=== PATIENT | female | born 1970 | race Caucasian/White ===

== ENCOUNTER 2021-11-17 14:50 | Emergency (ER) | payer BC, SELFPAY ==
--- NOTE | ~2021-11-17 | CT_ITS ---
EXAMINATION: CT abdomen pelvis wo con DATE: 11/17/2021 15:31 INDICATION: Kidney stones. Right flank pain. TECHNIQUE: Computed tomography (CT) of the abdomen and pelvis was performed without intravenous contr ast. Automated exposure control and iterative reconstruction technique were employed. The dose-length product was 181.19 mGy-cm. COMPARISON: CT abdomen and pelvis 12/06/2016 FINDINGS: The visualized portions of the lung bases demonstrate minimal atelectasis. No pleural effus ion. The heart size is normal. No pericardial effusion. The liver and spleen are normal. There are ch anges of cholecystectomy. The pancreas and adrenal glands are normal. There is mild right hydronephro sis and hydroureter. There is a 2 mm stone at right ureterovesicular junction. Left kidney is normal. There are no dilated loops of bowel. The appendix is normal. There are no pathologically enlarged ly mph nodes. There is no free intraperitoneal fluid. There is mild lumbar spondylosis. Lumbar levoscoli osis is noted. IMPRESSION: 1. 2 mm stone at right ureterovesicular junction with mild right hydronephrosis and hydroureter. Reviewed, dictated and finalized at location D. EY RESEARCH MANAGER IMPRESSION: 1. 2 mm stone at right ureterovesicular junction with mild right hydronephrosi s and hydroureter.
--- NOTE | ~2021-11-17 | XR_ITS ---
EXAMINATION: XR abdomen/kub 1V INDICATION: Right-sided abdominal pain TECHNIQUE: Supine views of the abdomen were obtained on 2 radiographs. COMPARISON: CT from today FINDINGS: There is subtle 2 mm calcification of the right pelvis in the expected location of the righ t ureterovesicular junction corresponding to the stone identified on earlier CT examination. Pelvic p hleboliths are noted. The bowel gas pattern is normal. Cholecystectomy clips are noted. The visualize d lung bases are clear. IMPRESSION: 1. Subtle 2 mm stone at the expected location of the right ureterovesicular junction. Reviewed, dictated and finalized at location F. INE WORKER IMPRESSION: 1. Subtle 2 mm stone at the expected location of the right ureterovesicular hieu ction.
[2021-11-17 14:57] VITALS: BP 140/86; PULSE 58; RESP 18; TEMP 36.5; O2SAT 99
[2021-11-17 15:07] VITALS: BP 140/86; O2SAT 100
[2021-11-17 15:15] VITALS: BP 149/100; O2SAT 100
[2021-11-17 15:20] LABS: Basophils Percent Auto 0.2 % (0.2-1.2); Eosinophils Absolute Auto 0.1 K/mm3 (0-0.3); Eosinophils Percent Auto 1.1 % (0-4.4); Hematocrit 40.7 % (37.0-47.0); Hemoglobin 13.9 g/dL (12.0-15.0); Immature Granulocyte Absolute 0.01 K/mm3 (0.00-0.031); Immature Granulocyte Percent A 0.1 % (0-0.5); Lymphocytes Absolute Auto 2.32 K/mm3 (0.9-3.2); Lymphocytes Percent Auto 28.4 % (18.3-44.2); Mean Corpuscular HGB Conc 34.2 g/dl (32-36); Mean Corpuscular Hemoglobin 30.8 pg (26-34); Mean Corpuscular Volume 90.2 fl (80-100); Mean Platelet Volume 9.3 fl (7.4-10.4); Monocytes Absolute Auto 0.6 K/mm3 (0.1-0.6); Monocytes Percent Auto 6.9 % (2.6-8.5); Neutrophils Absolute Auto 5.2 K/mm3 (1.3-6.7); Neutrophils Percent Auto 63.3 % (45.5-73.1); Platelet Count Result 266 k/mm3 (150-375); Red Blood Count 4.51 M/mm3 (4.2-5.4); Red Cell Distribution Width 12.7 % (11.5-14.5); White Blood Count 8.2 K/mm3 (4.5-10.0)
[2021-11-17 15:25] LABS: Add Urine Microscopic? YES; Appearance Urine Clear (Clear); Bacteria Urine Trace /hpf; Bilirubin Urine Negative (Negative); Blood Urine Negative (Negative); Color Urine Straw (Yellow); Glucose Urine UA Negative (Negative); Ketones Urine 1+ mg/dL (Negative); Leukocyte Esterase Ur Negative LEU/UL (Negative); Mucus Urine Rare /lpf; Nitrate Urine Negative (Negative); Protein Urine Negative (Negative); Squamous Epithelial Cell Urine Few /hpf (Few); Urobilinogen Urine Negative mg/dL (<2.0); WBC Urine 0-3 /hpf
[2021-11-17 15:31] LABS: Alanine Aminotransferase 21 U/L (4-35); Albumin Level 4.4 g/dL (3.5-5.1); Alkaline Phosphatase 92 U/L (38-126); Anion Gap 13 mmol/L (8-16); Aspartate Amino Transferase 28 U/L (14-36); Bilirubin,Total 0.6 mg/dL (0.2-1.3); Blood Urea Nitrogen 26 mg/dL (7-17); Calcium 9.5 mg/dL (8.4-10.2); Carbon Dioxide 22 mmol/L (22-30); Chloride 98 mmol/L (98-107); Estimated CRCL calculation 61 ml/min; Estimated Glomerular Filt Rate > 60; Glucose 114 mg/dL (65-110); Potassium 3.6 mmol/L (3.4-5.0); Sodium 133 mmol/L (137-145)
[2021-11-17] MEDS: SODIUM CHLORIDE 0.9% IV 1,000 ML 150 ML IV CONT (16:09)
[2021-11-17] MEDS: ONDANSETRON INJ 4 MG/2 ML VIAL IV PUSH (16:11)
[2021-11-17] MEDS: MORPHINE SULFATE (*CRX) 4 MG/ML INJ IV PUSH (16:12)
[2021-11-17 16:30] VITALS: BP 139/93; O2SAT 97
[2021-11-17 16:45] VITALS: BP 126/79; O2SAT 96
[2021-11-17 17:00] VITALS: BP 129/82; O2SAT 97
--- NOTE | 2021-11-17 17:03 | ED.ABDPAIN ---
HPI - Abdominal Pain General Chief Complaint: Urogenital-Female Stated Complaint: R FLANK PAIN Time Seen by Provider: 11/17/21 14:59 Source: patient Mode of arrival: ambulatory Limitations: no limitations History of Present Illness HPI narrative: 51-year-old with no major medical problems here with complaints of lower abdominal pain started early this morning. Patient states she went to her primary doctor's office to give a urine results on her way back home she started having more pain, felt slightly nauseous but no vomiting she also states her body tingling by the time she came to the ER tingling sensation has much resolved Related Data Home Medications Medication Instructions Recorded Confirmed venlafaxine 37.5 mg PO DAILY 11/17/21 Allergies Allergy/AdvReac Type Severity Reaction Status Date / Time bacitracin Allergy Rash Verified 11/17/21 16:13 [From Neosporin ([id number])] neomycin Allergy Rash Verified 11/17/21 16:13 [From Neosporin ([id number])] polymyxin B Allergy Rash Verified 11/17/21 16:13 [From Neosporin ([id number])] environmental allergens Allergy Mild Unknown Uncoded 11/17/21 16:13 Review of Systems Review of Systems: All systems reviewed & are unremarkable except as noted in HPI and below Constitutional: Constitutional: Reports no additional constitutional complaints Eyes: Eyes: Reports no additional eye complaints ENT: Reports system reviewed and no additional complaints, except as documented Cardiovascular: Cardiovascular: Reports no additional cardiovascular complaints Respiratory: Respiratory: Reports no additional respiratory complaints Gastrointestinal: Gastrointestinal: Reports as per HPI Genitourinary: Genitourinary: Reports no additional female genitourinary complaints Musculoskeletal: Musculoskeletal: Reports no additional musculoskeletal complaints Integumentary/Breasts: Skin/Breast: Reports system reviewed and no additional complaints, except as docu Neurologic: Reports system reviewed and no additional complaints, except as documented Psychiatric: Psychiatric: Reports no additional psychiatric complaints Exam Narrative: GENERAL: Well-appearing, well-nourished, and in no acute distress. HEAD: Normocephalic, atraumatic. EYES: PERRLA and EOMI. NECK: Supple. CHEST: Clear to auscultation. No respiratory distress. HEART: Regular rate and rhythm. No murmur heard. Normal peripheral pulses. ABDOMEN: Soft, nontender, nondistended, normal active bowel sounds. EXTREMITIES: Normal range of motion. No edema. SKIN: Warm, dry, no rash. NEURO: No focal deficits. Alert and oriented x3. PSYCH: Normal mood and affect. Course Course Emergency Course: Patient feeling much better after IV morphine. Informed her about the lab work and CT findings. She does feel comfortable going home. Vital Signs Vital signs: Vital Signs Temperature 36.5 C 11/17/21 14:57 Pulse Rate 58 L 11/17/21 14:57 Respiratory Rate 18 11/17/21 14:57 Blood Pressure 140/86 11/17/21 14:57 Pulse Oximetry 99 11/17/21 14:57 Temperature 36.5 C 11/17/21 14:57 Pulse Rate 58 L 11/17/21 14:57 Respiratory Rate 18 11/17/21 14:57 Blood Pressure 129/82 11/17/21 17:00 Pulse Oximetry 97 11/17/21 17:00 MDM - Abdominal Pain Differential Diagnosis Differential diagnosis: Likely acute appendicitis and other (UTI, kidney stones) Medical Records Attestation: I reviewed the patient's medical records. Lab Data Attestation: I reviewed the patient's lab results. Result diagrams: 11/17/21 15:12 11/17/21 15:12 Labs: Lab Results 11/17/21 11/17/21 11/17/21 Range/Units 15:12 15:12 15:12 WBC 8.2 (4.5-10.0) K/mm3 RBC 4.51 (4.2-5.4) M/mm3 Hgb 13.9 (12.0-15.0) g/dL Hct 40.7 (37.0-47.0) % MCV 90.2 (80-100) fl MCH 30.8 (26-34) pg MCHC 34.2 (32-36) g/dl RDW 12.7 (11.5-14.5) % Plt Count
== END 2021-11-17 17:30 | disposition home or self-care (01) ==
PROVIDERS: Emergency Provider Family Medicine
DX: N13.2 Hydronephrosis with renal and ureteral calculous obstruction (principal)
CPT/HCPCS: 36415; 74018; 74176; 80053; 81001; 81025; 85025; 96361; 96374; 96375; 99284; J2270; J2405; J7030

== ENCOUNTER → 2022-02-18 16:11 | Outpatient (CLI) | payer BC, SELFPAY ==
--- NOTE | ~2022-02-18 | MM_ITS ---
EXAMINATION: MM screening [facility] BI w trena HISTORY: Screening mammogram TECHNIQUE: Craniocaudal and mediolateral oblique 3-D tomosynthesis images were obtained and synthetic 2-D images were generated. CAD analysis was submitted and interpreted. COMPARISON: 06/18/2011 [facility] Bilateral screening mammogram BREAST PARENCHYMAL COMPOSITION: There are scattered areas of fibroglandular density. FINDINGS: There is no evidence of suspicious mass, calcification, or architectural distortion to sugg est malignancy in either breast. There has been no suspicious interval change. IMPRESSION: 1. No mammographic evidence of malignancy. 2. Recommend routine screening mammography in one year. BI-RADS Category 1: Negative Reviewed, dictated and finalized at location A.
== END ==
PROVIDERS: PCP Internal Medicine; Visit Provider Obstetrics & Gynecology
DX: Z12.31 Encounter for screening mammogram for malignant neoplasm of breast (principal)
CPT/HCPCS: 77063; 77067

== ENCOUNTER → 2023-04-19 15:42 | Outpatient (CLI) | payer BC, SELFPAY ==
--- NOTE | ~2023-04-19 | MM_ITS ---
EXAMINATION: MM screening [facility] BI w trena HISTORY: Screening mammogram TECHNIQUE: Craniocaudal and mediolateral oblique 3-D tomosynthesis images were obtained and synthetic 2-D images were generated. CAD analysis was submitted and interpreted. COMPARISON: 02/18/2022 bilateral screening mammogram BREAST PARENCHYMAL COMPOSITION: FINDINGS: Small breast mass, possibly chronic, is suggested anteriorly in the inner aspect of the low er inner quadrant of the right breast. Approximately 8 mm apparently new mass is suggested in the lower outer left breast. Bilateral diagnostic mammography and breast ultrasound examination are recommended. IMPRESSION: 1. Possible bilateral breast masses 2. Bilateral diagnostic mammography and breast ultrasound examination are recommended BI-RADS Category 0: Incomplete: Needs additional imaging evaluation. Reviewed, dictated and finalized at location A. IMPRESSION: 1. Possible bilateral breast masses 2. Bilateral diagnostic mammography and breast ultrasound examination are recom mended BI-RADS Category 0: Incomplete: Needs additional imaging evaluation.
== END ==
PROVIDERS: PCP Internal Medicine; Visit Provider Obstetrics & Gynecology
DX: Z12.31 Encounter for screening mammogram for malignant neoplasm of breast (principal); R92.8 Other abnormal and inconclusive findings on diagnostic imaging of breast
CPT/HCPCS: 77063; 77067

== ENCOUNTER → 2023-05-17 07:45 | Outpatient (CLI) | payer OTHER, SELFPAY ==
--- NOTE | ~2023-05-17 | MMUS_ITS ---
EXAMINATION: MM diagnostic konrad BI w trena, US breast BI limited HISTORY: Possible bilateral breast masses reported on 04/19/2023 screening mammogram TECHNIQUE: Additional 3-D tomosynthesis images of both breasts were performed and synthetic 2-D image s were generated. Rolled medial and lateral craniocaudal views of both breasts. CAD analysis was subm itted and interpreted. High resolution right lower inner quadrant and left 2:00-4:00 breast ultrasoun d was performed. COMPARISON: 04/19/2023 bilateral screening mammogram FINDINGS: MAMMOGRAPHIC FINDINGS: Approximately 6 x 8.8 mm irregular mass is noted in the outer mid left breast posteriorly. Ultrasound correlation was obtained. No other suspicious mass or any architectural distortion, microcalcifications, skin thickening or ret raction of either breast is noted. ULTRASOUND: Right breast: 5:00 subareolar: 2.6 x 3 mm cyst Left breast: 3:00 3 cm from nipple: Probable 3 mm cyst 4:00 7 cm from nipple: Mildly irregular 5.6 x 5.8 x 9.5 mm hypoechoic mass; some of the margins are n ot completely circumscribed. Ultrasound-guided biopsy is recommended. IMPRESSION: 1. Mildly irregular hypoechoic solid 5.6 x 5.8 x 9.5 mm mass with incompletely circumscribed margins, left breast 4:00 7 cm from nipple 2. Ultrasound-guided biopsy of left breast 4:00 lesion is recommended BI-RADS category 4, suspicious findings. Dr. Roman telephoned the report and ultrasound guided biopsy recommendation of left breast 4:00 lesion on 05/09/2023 at 0925 hours to the referring doctor's voicemail at . Reviewed, dictated and finalized at location A. IMPRESSION: 1. Mildly irregular hypoechoic solid 5.6 x 5.8 x 9.5 mm mass with incompletely circumscribed margins, left breast 4:00 7 cm from nipple 2. Ultrasound-guided biopsy of left breast 4:00 lesion is recommended BI-RADS category 4, suspicious findings. Dr. Roman telephoned the report and ultrasound guided biopsy recommendation of l eft breast 4:00 lesion on 05/09/2023 at 0925 hours to the referring doctor's voi cemail at .
== END ==
PROVIDERS: PCP Obstetrics & Gynecology; Visit Provider Obstetrics & Gynecology
DX: R92.8 Other abnormal and inconclusive findings on diagnostic imaging of breast (principal)
CPT/HCPCS: 76642; 77062; 77066; G0279

== ENCOUNTER 2024-03-25 16:33 | Outpatient (CLI) | payer OTHER, SELFPAY ==
[2024-03-25 17:49] LABS: Basophils Absolute Auto 0.1 K/mm3 (0.0-0.1); Basophils Percent Auto 0.7 % (0.2-1.2); Eosinophils Absolute Auto 0.2 K/mm3 (0-0.3); Eosinophils Percent Auto 2.4 % (0-4.4); Hematocrit 45.1 % (37.0-47.0); Hemoglobin 14.5 g/dL (12.0-15.0); Immature Granulocyte Absolute 0.02 K/mm3 (0.00-0.031); Immature Granulocyte Percent A 0.3 % (0-0.5); Lymphocytes Absolute Auto 1.86 K/mm3 (0.9-3.2); Lymphocytes Percent Auto 24.3 % (18.3-44.2); Mean Corpuscular HGB Conc 32.2 g/dl (32-36); Mean Corpuscular Hemoglobin 29.9 pg (26-34); Mean Platelet Volume 9.8 fl (7.4-10.4); Monocytes Absolute Auto 0.5 K/mm3 (0.1-0.6); Monocytes Percent Auto 6.3 % (2.6-8.5); Neutrophils Absolute Auto 5.1 K/mm3 (1.3-6.7); Platelet Count Result 338 k/mm3 (150-375); Red Blood Count 4.85 M/mm3 (4.2-5.4); Red Cell Distribution Width 13.3 % (11.5-14.5); White Blood Count 7.6 K/mm3 (4.5-10.0)
[2024-03-25 18:00] LABS: Alanine Aminotransferase 27 U/L (6-35); Alkaline Phosphatase 101 U/L (38-126); Anion Gap 9 mmol/L (4-12); Aspartate Amino Transferase 27 U/L (14-36); Bilirubin,Total 0.8 mg/dL (0.2-1.3); Blood Urea Nitrogen 19 mg/dL (7-17); Calcium 9.6 mg/dL (8.4-10.2); Carbon Dioxide 25 mmol/L (22-30); Chloride 105 mmol/L (98-107); Estimated Glomerular Filt Rate 58; Glucose 100 mg/dL (65-110); Potassium 4.2 mmol/L (3.4-5.0); Sodium 139 mmol/L (137-145)
[2024-03-25 18:53] LABS: Free T4 Free Thyroxine 1.02 ng/mL (0.78-2.19); Vitamin D 25 Hydroxy 34.7 ng/mL
== END 2024-03-25 16:34 | disposition home or self-care (01) ==
PROVIDERS: PCP Internal Medicine; Visit Provider Internal Medicine
DX: R53.83 Other fatigue (principal); E55.9 Vitamin D deficiency, unspecified
CPT/HCPCS: 36415; 80053; 82306; 82607; 84439; 84443; 85025

== ENCOUNTER 2024-04-02 16:37 | Outpatient (CLI) | payer OTHER, SELFPAY ==
--- NOTE | ~2024-04-02 | MM_ITS ---
EXAMINATION: MM screening [facility] BI w jordin HISTORY: Screening mammogram TECHNIQUE: Craniocaudal and mediolateral oblique 3-D tomosynthesis images were obtained and synthetic 2-D images were generated. CAD analysis was submitted and interpreted. COMPARISON: 05/17/2023 diagnostic bilateral mammogram and limited bilateral breast ultrasound examinat ion 04/19/2023, 02/18/2022 lateral screening mammogram examinations BREAST PARENCHYMAL COMPOSITION: There are scattered areas of fibroglandular density. FINDINGS: At least several approximately 3.4, 4.4 and 8.3 mm masses are noted in the central and oute r left breast (craniocaudal Jordin image 20/76). Diagnostic left mammogram and left breast ultrasound e xamination are recommended. Possible approximately 4 mm mass in the lower anterior right breast (MLO, Jordin image 29/82; craniocau dunia, Jordin image 20/74). Diagnostic right mammogram and right breast ultrasound examination recommend ed IMPRESSION: 1. Possible bilateral breast masses 2. Diagnostic bilateral mammogram and bilateral breast ultrasound examination are recommended BI-RADS Category 0: Incomplete: Needs additional imaging evaluation. Reviewed, dictated and finalized at location A. IMPRESSION: 1. Possible bilateral breast masses 2. Diagnostic bilateral mammogram and bilateral breast ultrasound examination a re recommended BI-RADS Category 0: Incomplete: Needs additional imaging evaluation.
== END 2024-04-02 16:38 | disposition home or self-care (01) ==
PROVIDERS: PCP Internal Medicine; Visit Provider Obstetrics & Gynecology
DX: Z12.31 Encounter for screening mammogram for malignant neoplasm of breast (principal); R92.8 Other abnormal and inconclusive findings on diagnostic imaging of breast
CPT/HCPCS: 77063; 77067

== ENCOUNTER 2024-04-23 10:53 | Outpatient (CLI) | payer OTHER, SELFPAY ==
--- NOTE | ~2024-04-23 | MMUS_ITS ---
EXAMINATION: MM diagnostic konrad BI w trena, US breast BI limited HISTORY: Follow-up breast asymmetries TECHNIQUE: Additional 3-D tomosynthesis images of the breasts were performed and synthetic 2-D images were generated. CAD analysis was submitted and interpreted. High resolution limited bilateral breast ultrasound was performed. COMPARISON: Comparison to multiple prior studies sequentially, with oldest reviewed study dated 11/2021. BREAST PARENCHYMAL COMPOSITION: Not dense: There are scattered areas of fibroglandular density. FINDINGS: MAMMOGRAPHIC FINDINGS: Bilateral breast asymmetries are unchanged from previous examination. There are no suspicious areas o f architectural distortion or calcifications. ULTRASOUND: Limited right breast ultrasound: There are small cyst at 12:00, 3 cm from the nipple and 4:00, near t he nipple, largest measuring 5 mm. No suspicious masses to suggest malignancy. Limited left breast ultrasound: At 12:00, 1 cm from the nipple there is an antiparallel 3 mm hypoecho ic mass without posterior features or internal vascularity. At 3:00, 3 cm from the nipple there is a 4 mm cyst. IMPRESSION: 1. Antiparallel 3 mm mass of the left breast at 12:00, 1 cm from the nipple. Margins are is slightly irregular. 2. Ultrasound-guided aspiration of left breast mass recommended. If no fluid obtained, biopsy recomme nded. BI-RADS category 4, suspicious findings. Reviewed, dictated and finalized at location B. IMPRESSION: 1. Antiparallel 3 mm mass of the left breast at 12:00, 1 cm from the nipple. Ma rgins are is slightly irregular. 2. Ultrasound-guided aspiration of left breast mass recommended. If no fluid ob tained, biopsy recommended. BI-RADS category 4, suspicious findings.
== END 2024-04-23 10:54 | disposition home or self-care (01) ==
PROVIDERS: PCP Internal Medicine; Visit Provider Obstetrics & Gynecology
DX: N63.20 Unspecified lump in the left breast, unspecified quadrant (principal); R92.8 Other abnormal and inconclusive findings on diagnostic imaging of breast
CPT/HCPCS: 76642; 77062; 77066; G0279

== ENCOUNTER 2024-05-17 08:21 | Outpatient (CLI) | payer OTHER, SELFPAY ==
--- NOTE | 2024-05-27 11:06 | WPDHOMESLEEP ---
Sleep Study - Home Unattended Date of Study: 05/17/24 Ordering Provider: David Beckman, Interpreting Provider: Meron Hawthorne MD Home Sleep Study Type: Watch PAT Height: 1.52 m Weight: 73.482 kg Body Mass Index: 31.6 Neck Circumference (inches): 13.5 [place]: 9 Reason for Sleep Study Tiredness, fatigue, poor quality sleep Sleep History Radha Gallardo is a 54-year-old woman with excessive daytime sleepiness. She has seasonal allergies, indigestion, elevated blood pressure for the past few weeks without a diagnosis of hypertension. She falls asleep any time she sits down in the evening. She never awakens from sleep short of breath. She never wakes at night with heartburn, belching or coughing.??She frequently snores, and it is frequently loud enough that others complain. She rarely has trouble sleeping when she has a cold. She occasional wakes up gasping for breath during the night. She occasionally has breathing problems at night witnessed by others. She frequently sweats excessively at night. She frequently notices her heart pounding or beating irregularly during the night. She never falls asleep during the day. She never falls asleep involuntarily, never falls asleep while driving. She never experiences loss of muscle tone with strong emotion. She never feels paralyzed on waking or falling asleep. She never experiences vivid dreams upon waking or falling asleep. She never feels afraid of going to sleep. She never has nightmares. She occasionally recalls her dreams. She occasionally has thoughts racing through her mind. She never feels sad or depressed. She rarely feels anxiety. She occasionally notices parts of her body jerk. She occasionally kicks during the night. She occasionally feels crawling or aching feelings in her legs. This is random, less than weekly. She occasionally feels leg pain at night. She never has morning jaw pain, although she occasionally grinds her teeth at night. She occasionally feels bothered by pain during the day, is never awakened by pain during the night. She frequently wakes up feeling stiff in the morning, frequently wakes feeling sore or achy in the morning. She occasionally awakens with pain in her neck, spine, or joints. She has headaches, fatigue, and she takes antacids regularly. Normal bedtime is 9:30 p.m., falling asleep within 15 minute, waking 3-4 times at night. While awake at night, she goes to the bathroom, returns to bed, is able to return to sleep shortly. These awakenings occur in the middle of the night. She wakes at 5:30 a.m., reports getting 7 hours of sleep per night. She keeps a similar schedule on weekends, bedtime is 930, wake time is between 6:30 a.m. and 7:00 a.m.. Her sleep issue does not require her to cut back on social activities. She does not take naps in the afternoon or evening. A short nap lasting 10-15 minute is not refreshing. Most of the time she feels refreshed on waking. She feels better in the morning compared to other times of day. She reports a 45 pound weight gain in the last year. Habits:??Tobacco: Never smoker Caffeine: 1 cup of coffee Alcohol: Occasional Recreational substances: none [facility] Social History Social History (Updated 05/27/24 @ 11:25 by Meron Hawthorne MD) Smoking status: Never smoker Alcohol use details: Occasional Living arrangements: with family Medications Medications: Patient's hand written medication list includes only Claritin/loratadine p.r.n. and she takes montelukast as bedtime, as well. Office note 03/25/2024 medication list shows: Ascorbic acid 125 mg daily Biotin 5000 mcg daily Fish oil a 1000 mg b.i.d. magnesium oxide 250 mg daily Montelukast 5 mg at bedtime Multivitamin 1 daily potassium supplement Zinc gluconate 50 mg daily Fexofenadine 180 mg daily Sleep Procedure The sleep study was completed using WatchPAT a technically adequate device w
[2024-05-27 11:13] VITALS: BMI 31.6
== END 2024-05-20 08:34 | disposition home or self-care (01) ==
LOC: ANHCSM 08:25
PROVIDERS: PCP Internal Medicine; Visit Provider Internal Medicine
DX: G47.33 Obstructive sleep apnea (adult) (pediatric) (principal); G47.9 Sleep disorder, unspecified; R06.83 Snoring; Z68.31 Body mass index [BMI] 31.0-31.9, adult
CPT/HCPCS: 95800

== ENCOUNTER 2024-12-31 17:47 | Emergency (ER) | payer OTHER, SELFPAY ==
--- OUTSIDE RECORDS SUMMARY | 2024-12-31 17:49 | XMS_ITS | Clinical Summary ---
Author Organization [facility] Address [address] [place] [id number] Care Team Providers Care Tire Changer Name Role Phone David Beckman MD Primary Care Provider [phone] Allergies Active Allergy Reactions Criticality Noted Date Comments Neomycin-Bacitracin Zn-Polymyx Contact Dermatitis 01/26/2015 Sulfa Antibiotics Hives 10/21/2022 Medications multivitamin tablet Active fexofenadine 180 MG tablet Take 1 tablet (180 mg total) by mouth daily. Active montelukast (SINGULAIR) 5 MG chewable tablet Chew 1 tablet (5 mg total) by mouth nightly at bedtime. Active azithromycin (ZITHROMAX Z-SANJAY) 250 MG tabletIndicatio ns:Acute cough Take 2 tablets by mouth on day one then 1 daily for four days. 6 tablet 11/19/2024 Active Active Problems Problem Noted Date Diagnosed Date Menopausal symptoms 07/09/2021 Alopecia areata 07/06/2021 Post-menopausal 07/06/2021 Acute epigastric pain 12/12/2017 Dysuria 12/12/2017 Nausea 12/12/2017 Sinusitis 11/02/2017 GERD (gastroesophageal reflux disease) 7 Allergic rhinitis 06/20/2017 Vitamin D deficiency 02/03/2015 Hyperlipidemia 10/18/2013 Encounters Date Type Department Care Team Description 11/18/2024 Telephone [facility] Family [facility] Internal Medicine [address] [phone] David Beckman MD Medication Request from Last 3 Months Immunizations Name Administration Dates Next Due Influenza (Generic) 10/18/2013 Family History Medical History Relation Comments Cancer Father Kidney Disease Maternal Grandmother Hyperlipidemia Mother Hypertension Mother Relation Status Comments Father Maternal Grandmother Mother Social History Tobacco Use Types Packs/Day Years Used Date Smoking Tobacco: Former Smokeless Tobacco: Never Tobacco Cessation:Counseling Given: Yes Alcohol Use Standard Drinks/Week Comments No 0 (1 standard drink = 0.6 oz pur e alcohol) AUDIT-C Answer Date Recorded Frequency of Alcohol Consumption Never 03/07/2019 Average Number of Drinks Not on file 019 Frequency of Binge Drinking Not on file 02/18 PHQ-2 Answer Date Recorded Patient Health Questionnaire-2 Score 0 03/25/2024 Comments No Sex and Gender Information Value Date Recorded Sex Assigned at Not on file Legal Sex Female 7:03 PM CDT Gender Identity Not on file Sexual Orientation Not on file Last Filed Vital Signs Vital Sign Reading Time Taken Comments Blood Pressure 120/74 07/08/2024 9:15 AM CDT Pulse 70 07/08/2024 9:15 AM CDT Temperature 36.6 C (97.9 F) 07/08/2024 9:15 AM CDT Respiratory Rate 18 07/08/2024 9:15 AM CDT Oxygen Saturation 96% 07/08/2024 9:15 AM CDT Inhaled Oxygen Concentration - - Weight 73.3 kg (161 lb 8 oz) 07/08/2024 9:15 AM CDT Height 154.9 cm (5' 1 ) 07/08/2024 9:15 AM CDT Body Mass Index 30.52 07/08/2024 9:15 AM CDT Plan of Treatment Upcoming Encounters Date Type Department Care Team (Late st Contact Info) Description 04/04/2025 2:[address] [facility] [address] [place], [place] [phone] Quin Garcia MD [address] [place] [phone] 04/04/2025 3:30 PM CDT Appointment [facility] [address] [facility] [place] [address] Quin Garcia MD [address] [facility] [address] [place], [place] [phone] Health Maintenance Due Date Last Done Comments Cervical Cancer Screening Pap Smear (Age 30 to 64) Every 3 Years 1969 Hepatitis C 1987 DTaP, Tdap and Td Vaccines (1 - Tdap) 02/27/1988 Hepatitis B Vaccines (1 of 3 - 19+ 3-dose series) 02/27/1988 Cervical Cancer Screening Pap with HPV Testing (Age 30 to 64) Every 5 Years 1999 Cervical Cancer Screening with HPV 1999 Zoster Vaccines (1 of 2) 2019 Annual Physical 07/06/2022 07/06/2021, 03/07/2019 COVID-19 Vaccine ( season) 2024 02/09/2021, 01/12/2021 Influenza Adult (#1) 2024 10/18/2013 PHQ-2 (Physician [place]ashik) 11/20/2024 03/25/2024 PHQ-2 (Physician [place]ash[place]) 03/25/2025 03/25/2024 Mammogram Screening 08/30/2026 08/30/2024, 04/23/2024, 04/02/2024, Additional history exists Colorectal Cancer Screening Colonoscopy (10 Years) 01/11/2028 01/11/2018 Meningococcal B Vaccine Aged Out No l onger eligible based on patient's age to complete this topic Meningococcal Vaccine Aged Out No leslie ricky eligible based on patient's age to complete this topic Pneumococcal Vaccine: Pediatrics (0 to 5 Years) and At-Risk Patients (6 to 64 Years) Aged Out No longer eligible based on patient's age to complete this topic RSV Immunizations Under 20 Months Aged Out No longer eligible based on patient's age to complete this topic Procedures Procedure Name Priority Date/Time Associated Diagnosis Comments MG DIAG W TUAN LT DIGI Routine 08/30/2024 3:29 PM CDT Breast cyst, left COLONOSCOPY GENERIC (SCAN ORDER) Routine 01/11/2018 from Last 3 Months or Most Recently Relevant to Health Maintenance Results * MG FRANCINE Huffman TUAN LT DIGI (08/30/2024 3:29 PM CDT) Anatomical Region Laterality Modality Breast Left Mammography 08/30/2024 3:36 PM CDT Impressions 08/30/2024 3:44 PM CDT IMPRESSION: Stable mammographic appearance of the left breast. Probable recurrent complicated cyst with new adjacent clustered microcysts likely related to recent aspiration. Recommend six-month follow-up of these probably benign cysts. RECOMMENDATION: Short interval follow-up in 6 months.Left Findings, impression, and recommendation were discussed with the patient immediately following exam completion. OVERALL IMAGING ASSESSMENT: ACR BI-RADS 3 - PROBABLY BENIGN FINDING(S) - SHORT INTERVAL FOLLOW-UP SUGGESTED. Ordered By: QUIN GARCIA Interpreted By: Som Henriquez, 08/30/2024 3:36 PM Narrative 08/30/2024 3:44 PM CDT [place] [id number] EXAMINATION: MG FRANCINE Huffman TUAN LT DIGI, US BREAST LT BIRAD LTD [id number] INDICATIONS: 3 MOS F/U LEFT BREAST CYCST ASPIRATION TECHNIQUE: Digital full field CC, ML, and MLO diagnostic views of the left breast to include 3-D Tomosynthesis technique. This study was read with the assistance of a computer-aided detection system. Targeted grayscale and color Doppler ultrasound imaging of the left breast. HISTORY: Patient presents for three-month follow-up status cyst aspiration. No current breast complaint. Operative report was reviewed which described complete aspiration of a simple cyst. No personal or family history of breast cancer. COMPARISON: 05/29/2024, 04/23/2024, 04/02/2024, 05/17/2023, 04/19/2023, and 02/18/2022. TISSUE DENSITY: There are scattered areas of fibroglandular density. FINDINGS: Mammogram: Stable mammographic appearance of the left breast to include ovoid equal density masses at the upper retroareolar breast and upper slightly outer middle depth breast with stable long-standing stable nodular asymmetry at the outer posterior depth breast. No suspicious microcalcification or mass. No developing asymmetry or architectural distortion. No axillary adenopathy. Sonogram: Targeted sonographic evaluation of the 12:00 axis of the left breast 1 cm from the nipple demonstrates a recurrent round 3 mm hypoechoic thin-walled cyst with low-level internal echoes within a ridge of dense fibroglandular tissue. New adjacent probable clustered microcysts lateral to this measuring 4.7 cm in long axis with parallel orientation. Internal vascularity, posterior acoustic shadowing, or definite solid component within either cystic lesion at the site of aspiration. us Quin Garcia MD MAMMO Final Result * COLONOSCOPY (01/11/2018) us Documents Scanned SCANNING Final Result Performing Organization Address City/State/[facility] Co de Phone Number [facility] from Last 3 Months or Most Recently Relevant to Health Maintenance Insurance [employer] Care Teams Tire Changer Relationship Specialty Start Date End Date David Beckman MD [address] [place] [id number] PCP - General INTERNAL MEDICINE 10/02/19
[2024-12-31 18:04] VITALS: BP 138/87; PULSE 66; RESP 18; TEMP 36.8; O2SAT 100
[2024-12-31 18:34] LABS: EDCOVIDSCREEN Negative (Negative); EDINFLUASCREEN Positive (Negative); EDINFLUBSCREEN Negative (Negative)
--- NOTE | 2024-12-31 18:41 | ED.URI ---
HPI - URI/Sore Throat General Chief Complaint: Upper Respiratory Infection Stated Complaint: COUGH Time Seen by Provider: 12/31/24 18:32 Source: patient, RN notes reviewed and old records reviewed Mode of arrival: ambulatory Limitations: no limitations History of Present Illness HPI Narrative: 54-year-old female presents to the [facility] with concerns for a cough. States that on Monday and Monday she had headache, body aches and fevers. Was taking DayQuil and NyQuil. Today took 1 dose of Mucinex DM. States the cough has been going since Monday And is gradually got worse. Flu a exposure Onset (ago): day(s) (4) Related Data Allergies Allergy/AdvReac Type Severity Reaction Status Date / Time bacitracin (From Neosporin Allergy Mild Rash Verified 12/31/24 18:32 ([id number])) neomycin (From Neosporin Allergy Mild Rash Verified 12/31/24 18:32 ([id number])) polymyxin B (From Neosporin Allergy Mild Rash Verified 12/31/24 18:32 ([id number])) Sulfa (Sulfonamide Allergy Mild Rash Verified 12/31/24 18:32 Antibiotics) Review of Systems Review of Systems: All systems reviewed & are unremarkable except as noted in HPI and below Constitutional: Constitutional: Reports as per HPI, Reports body ache(s), Reports chills and Reports fever(s) ENT: Reports system reviewed and no additional complaints, except as documented Cardiovascular: Cardiovascular: Reports no additional cardiovascular complaints, Denies chest pain and Denies dyspnea Respiratory: Respiratory: Reports as per HPI, Denies chest congestion, Reports cough and Denies dyspnea Musculoskeletal: Musculoskeletal: Reports no additional musculoskeletal complaints Integumentary/Breasts: Skin/Breast: Reports system reviewed and no additional complaints, except as docu PMFSH Social History Social History Smoking status: Never smoker Alcohol use details: Occasional Living arrangements: with family Comments At the time of my signature, I reviewed and agree with the nursing past medical, surgical, social, and family history. There is no relevant family history pertinent to the patient complaint. Exam Const: General: cooperative, healthy appearing, comfortable, no acute distress, well developed, alert and well nourished Nutritional Appearance: well nourished Orientation/consciousness: patient oriented x3 Limitations: no limitations HENMT: Head: normal to inspection Ears: hearing grossly normal bilaterally, external ears normal, TM's normal bilaterally, EAC's normal, mastoids normal and no periauricular adenopathy Mouth: Yes Normal oral and palatal mucosa present, Yes lip normal, Yes tongue normal and Yes moist mucous membranes Throat: posterior oropharynx normal, uvula midline and no uvular edema Eyes: General: appearance normal, both eyes and all related structures Alignment and Position: alignment normal Neck: Neck: normal visual inspection, full ROM, no lymphadenopathy and no meningeal signs Chest: Chest palpation & inspection: normal inspection of the chest Resp: Effort & Inspection: normal respiratory effort, able to speak in complete sentences and Actively coughing dry Auscultation: clear to auscultation bilaterally, no crackles, no rales, no rhonchi and no wheezes Cardio: Rate: regular rate Skin: General skin exam: normal color and no rashes or lesions noted Neuro: General: patient oriented x3, gait normal, moves all extremities and no meningeal signs Cognition (Neuro): normal cognition Speech: normal speech Gait exam (Neuro): Normal gait present Extrem: General: normal to inspection, full ROM, capillary refill normal and normal gait Psych: Appearance: grossly normal and well kempt Mental Status: mental status grossly normal Speech and movement: Normal speech and movement present and Clear speech present Affect: normal affect Attitude: cooperative Course Course Level of Care: Express Care Visit Vital Signs Vital signs: Vital Signs Temperature 98.3 F 12/31/24 18:04 Pulse Rate 66 12/31/24 18:04 Respiratory Rate 18 12/31/24 18:04 Blood Pressure 138/87 12/31/24 18:04 Pulse Oximetry 100 12/31/24 18:04 Oxygen Delivery Room Air 12/31/24 18:04 Temperature 98.3 F 12/31/24 18:04 Pulse Rate 66 12/31/24 18:04 Respiratory Rate 18 12/31/24 18:04 Blood Pressure 138/87 12/31/24 18:04 Pulse Oximetry 100 12/31/24 18:04 Oxygen Delivery Room Air 12/31/24 18:04 Reviewed MDM - URI/Sore Throat MDM Narrative Medical decision making narrative: Patient sitting comfortably in exam room. Nontoxic, vitals stable. Patient in no acute distress. Patient presents with a cough since Monday, fever, body aches, URI symptoms Since Monday and Monday. Patient tested positive for influenza A Patient appropriate for outpatient treatment with close follow-up. Discharge instructions reviewed with patient, as well as provided in writing per nursing staff. The instructions also include specific and strict return/GO TO THE ER as well as f/u information. All questions have been answered, and the patient deny any further questions with discharge and discharge plan. Some parts of this dictation were generated by voice recognition software and may contain typographical and/or grammatical inaccuracies. Differential Diagnosis Differential diagnosis: Likely upper respiratory infection, otitis media, sinusitis, viral infection, bronchitis and influenza Lab Data Labs: Lab Results 12/31/24 Range/Units 18:32 POC Influenza A Ag Positive (Negative) POC Influenza B Ag Negative (Negative) POC SARS CoV-2 Ag Negative (Negative) Reviewed Critical Care Time Critical Care Time Critical Care Time: No Discharge Plan Discharge Clinical Impression: Influenza A Patient Disposition: Home, Self-Care Condition: Stable Instructions: Antibiotic Form, Influenza (ED) Additional Instructions: Your rapid COVID test were negative Your rapid flu test was negative Your symptoms are due to a viral illness, which is not treated with antibiotics. Typically viral infections last 7-10 days, can linger for couple of weeks. It is very important to treat your symptoms. Drink plenty of water, Gatorade, Pedialyte, ice pops or Jell-O. -Alternate Tylenol and Motrin per package directions for fever or pain. You can alternate every 4 hours -Antihistamine medication such as Zyrtec/Claritin/Carin during the day can help improve symptoms. -doing daily nasal irrigations can help relieve pressure your sinuses. Things like a Neti pot -Use Flonase twice a day for 5 days then daily to help reduce the inflammation and dry up your sinuses. -You can also use Mucinex. Be sure to drink plenty of water with this medication at least 8 ounces with every dose and it is important to drink 8 to 10 glasses of water per day. Water is a natural decongestant -Eat and drink things that are easy to swallow, like tea or soup, or popsicles. -Oral rinses such as: Salt water gargles and/or may use topical anesthetic (eg. Chloraseptic spray) or lozenges to relieve dryness or throat pain). -Frequent hand washing or hand ceramics technician is one of the best ways to prevent spread of infection. -Using a vaporizer or humidifier at night will also help thin secretions and help with coughing up phlegm. -Follow up with primary care provider in 7-10 days if condition is not improving - For new or worsening symptoms go directly to the nearest ER Patient Language: Citizen Of [place] Prescriptions: New benzonatate 100 mg capsule 100 mg PO TID PRN (Reason: cough) Qty: 15 0RF Follow-up/Referrals: Karuna,David Valdez MD [Primary Care Provider] - 2 Weeks ([facility] follow-up) Stand Alone Forms: Work/School Release IP Time of Disposition: 18:44
== END 2024-12-31 18:48 | disposition home or self-care (01) ==
PROVIDERS: Emergency Provider Nurse Practitioner; PCP Internal Medicine
DX: J10.1 Influenza due to other identified influenza virus with other respiratory manifestations (principal); Z20.822 Contact with and (suspected) exposure to COVID-19; Z86.16 Personal history of COVID-19
CPT/HCPCS: 87426; 87804; 99213; G0463

== ENCOUNTER 2025-08-06 06:36 | Outpatient (CLI) | payer OTHER, SELFPAY ==
[2025-08-06 07:22] LABS: Hematocrit 43.9 % (37.0-47.0); Hemoglobin 14.4 g/dL (12.0-15.0); Immature Granulocyte Percent A 0.2 % (0-0.5); Lymphocytes Absolute Auto 1.62 K/mm3 (0.9-3.2); Mean Corpuscular HGB Conc 32.8 g/dl (32-36); Mean Corpuscular Hemoglobin 30.0 pg (26-34); Mean Corpuscular Volume 91.5 fl (80-100); Nucleated Red Blood Cells Absolute Auto 0.000 K/mm3 (0.0-0.012); Nucleated Red Blood Cells Perc 0.0 % (0.0-0.2); Platelet Count Result 274 k/mm3 (150-375); Red Blood Count 4.80 M/mm3 (4.2-5.4); White Blood Count 6.2 K/mm3 (4.5-10.0)
[2025-08-06 07:30] LABS: Add Urine Microscopic? YES; Appearance Urine Cloudy (Clear); Glucose Urine UA Negative (Negative); Leukocyte Esterase Ur 2+ LEU/UL (Negative); Nitrate Urine Negative (Negative); Non Pathogenic Casts 0-2; Specific Grav Ur 1.021 (1.001-1.035)
[2025-08-06 07:53] LABS: Alanine Aminotransferase 17 U/L (6-35); Albumin Level 4.3 g/dL (3.5-5.1); Alkaline Phosphatase 78 U/L (38-126); Anion Gap 7 mmol/L (4-12); Aspartate Amino Transferase 23 U/L (14-36); Bilirubin,Total 0.9 mg/dL (0.2-1.3); Blood Urea Nitrogen 20 mg/dL (7-17); Calcium 9.1 mg/dL (8.4-10.2); Carbon Dioxide 25 mmol/L (22-30); Chloride 107 mmol/L (98-107); Cholesterol 243 mg/dL (0-200); Estimated Glomerular Filt Rate > 60; Glucose 92 mg/dL (65-110); HDL Direct 73 mg/dL; Potassium 4.5 mmol/L (3.4-5.0); Sodium 139 mmol/L (137-145); Total Protein 7.4 g/dL (6.3-8.2); Triglycerides 65 mg/dL (<150)
[2025-08-06 08:16] LABS: Thyroid Stimulating Hormone Reflex 2.320 uIU/mL (0.465-4.68)
== END 2025-08-06 06:37 | disposition home or self-care (01) ==
LOC: ANHLAB 06:39
PROVIDERS: PCP Internal Medicine; Visit Provider Internal Medicine
DX: Z00.00 Encounter for general adult medical examination without abnormal findings (principal)
CPT/HCPCS: 36415; 80053; 80061; 81001; 84443; 85025; 86803